=== PATIENT | female | born 1990 | race Caucasian/White ===

== ENCOUNTER 2018-12-23 06:49 | Day surgery (SDC) | payer MEDICAID ==
[2018-12-20 10:35] VITALS: BP 114/58
[2018-12-20 10:37] LABS: BASOPHILS % (AUTO) 0.3 % (0.0-5.0); EOSINOPHILS % (AUTO) 2.2 % (0.0-8.0); LYMPHOCYTES % (AUTO) 34.2 % (21.0-51.0); MEAN CORPUSCULAR HEMOGLOBIN 31.8 pg (27.0-33.0); MEAN CORPUSCULAR HGB CONC 33.7 g/dL (32.0-36.0); MEAN CORPUSCULAR VOLUME 94.4 fL (79-99); NEUTROPHILS % (AUTO) 54.3 % (40.0-77.0); NUCLEATED RED BLOOD CELLS 0.1 % (0.0-0.19); PLATELET COUNT (AUTO) 328 K/uL (130-400); RED BLOOD CELL COUNT(AUTO) 3.92 MIL/uL (4.00-5.50); RED CELL DISTRIBUTION WIDTH 13.2 % (11.0-15.5); WHITE BLOOD COUNT (AUTO) 6.7 K/uL (4.8-10.8)
[2018-12-23] VITALS (15 sets, daily range): BP systolic 96–128; BP diastolic 51–74
[~2018-12-23] VITALS: Ht 160 cm; Wt 57.8 kg
[~2018-12-23 06:49] MED LIST: PREN1TAB80 PO
[2018-12-23] MEDS ORDERED: LIDOCAINE PF 2% 5ML ABBOJECT ONE (07:30)
[2018-12-23] MEDS ORDERED: SUCCINYLCHOLINE 200MG/10ML SYR ONE (07:30)
[2018-12-23] MEDS ORDERED: FENTANYL CITRATE PF 50 MCG/1 ML 2ML VIAL ONE ×2 (07:31→09:00)
[2018-12-23] MEDS ORDERED: PROPOFOL 10 MG/ML 20ML VIAL IV ONE (07:31)
[2018-12-23] MEDS ORDERED: ROCURONIUM 10MG/1ML SYR 10 MG/ML ML ONE (07:31)
[2018-12-23] MEDS ORDERED: MIDAZOLAM HCL 1 MG/ML 2ML VIAL ONE (07:44)
[2018-12-23] MEDS ORDERED: LACTATED RINGERS 1000ML 1,000 ML IV ONE (07:58)
[2018-12-23] MEDS ORDERED: GLYCOPYRROLATE 1 MG/5 ML SYRINGE ONE (08:18)
[2018-12-23] MEDS ORDERED: NEOSTIGMINE 5MG/5ML SYR IV ONE (08:18)
[2018-12-23] MEDS ORDERED: ONDANSETRON HCL 4 MG/2 ML VIAL ONE (08:19)
[2018-12-23] MEDS ORDERED: MEPERIDINE-PF 25 MG/ML SYG ONE ×2 (08:40→08:52)
--- NOTE | 2018-12-23 09:53 | NUR ---
NOTE PT WITH BAND AID X2 TO ABDOMINAL AREA, NO BLEEDING OR HEMATOMA NOTED TO SITE. Addendum: 12/23/18 at 0955 by ROSALINDA CAMPO RN RN Amended: Links added.
--- NOTE | 2018-12-23 10:20 | NUR ---
NOTE PT COMPLAINING OF BACK PAIN. REQUESTING FOR THE DOCTOR TO CHANGE PAIN MEDICATION SCRIPT. CALLED DR PADILLA, STATES HE DOES NOT WRITE SCRIPTS FOR NARCOTICS BUT FOR ME TO ADMINISTER A ONE TIME DOSE OF VICODIN 10/325MG BEFORE DISCHARGE. I EXPLAINED TO PATIENT , VERBALIZES UNDERSTANDING.
[2018-12-23] MEDS ORDERED: HYDROCODONE/ACETAMINOPHEN 10/325 MG TAB PO SCH (10:45)
== END 2018-12-23 11:25 | disposition home or self-care (01) ==
LOC: DAH 06:49
PROVIDERS: ATTEND Specialist
DX: Z30.2 Encounter for sterilization (principal); Z79.899 Other long term (current) drug therapy; Z98.890 Other specified postprocedural states; K21.9 Gastro-esophageal reflux disease without esophagitis
CPT/HCPCS: 36415 ×2; 58671; 84703; 85025; 86850 ×2; 86900 ×2; 86901 ×2; A4215; A4264; A4351; C1769 ×2; J0330; J2001; J2175 ×2; J2250; J2405; J2704; J2710; J3010 ×2; J3490; J7030; J7120